=== PATIENT | female | born 1980 | race Caucasian/White ===

== ENCOUNTER → 2020-01-28 | Outpatient (CLI) | payer MEDICARE, OTHER ==
[2020-01-28 15:15] VITALS: BP 131/78; PULSE 101; RESP 18; TEMP 97.9
--- NOTE | 2020-01-28 17:19 | P.HPOB ---
History of Present Illness H&P Date: 01/28/20 Chief Complaint: The pt is here for her routine gynecologic exam to continue Depo-Provera This is a 39-year-old with an LMP of approximately November 2018. The patient is here to establish with this office. She states she was started on Depo-Provera about 1-2 years ago because of heavy and painful menstrual periods as well as PMDD which was so severe that she had been suicidal. She states after starting the Depo-Provera, she has been amenorrheic and has no longer had the PMDD or menstrual pains. Her last Depo-Provera shot was approximately 3-4 months ago and this was done elsewhere. Her primary care physician, Dr. Butts, has referred her here to continue the Depo-Provera. The patient states she is due for her yearly exam. Her is status post vasectomy. She states that she and her are contemplating a vasectomy reversal to attempt . She is not sure when this will be and would like to continue on with Depo- Provera, understanding that this is actively preventing and can do this for more than one year after her last Depo-Provera injection. She is also requesting STD testing. She states this is because she and her were apart a few years ago and are now back together. Review of Systems She states her weight has fluctuated between 170 pounds and 190 pounds during the past year. Respiratory: She has had a chronic cough for many years and has undergone a workup for this in the past. She denies cardiac or GI problems. Past Medical History Past Medical History: No Reported History, Asthma, Osteoarthritis (OA) Additional Past Medical History / Comment(s): Degenerative disc disease, chronic fatigue syndrome, spinal stenosis, fibromyalgia, ADD, chronic neck and back problems, vitamin D deficiency, chronic pain syndrome, seasonal ALLERGIES. 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 She denies any STDs since then. She has a history of PMDD, dysmenorrhea and hypermenorrhea improved with Depo-Provera. History of Any Multi-Drug Resistant Organisms: None Reported Past Surgical History: Adenoidectomy Additional Past Surgical History / Comment(s): Ear tubes placed. VTP as a teenager. Past Psychological History: ADD/ADHD, Anxiety, Depression, Panic Disorder Additional Psychological History / Comment(s): Claustrophobia, PMDD. Smoking Status: Current every day smoker (1/2-1 pack of cigars per day) Past Alcohol Use History: Rare (4 per year) Past Drug Use History: Marijuana Additional Drug Use History / Comment(s): Marijuana use in high school only. Additional History: She was and remarried her . She has been since 2002. She is considered disabled. - Past Family History Father Family Medical History: Myocardial Infarction ([place]) Mother Family Medical History: Cancer Additional Family Medical History / Comment(s): Depression and bladder cancer. Maternal grandfather had bladder cancer as well. Maternal grandmother had breast cancer. Medications and Allergies Home Medications Medication Instructions Recorded Confirmed Type Albuterol Inhaler [Ventolin Hfa 1 - 2 puff INHALATION RT-Q6H PRN 01/28/20 01/28/20 History Inhaler] Buprenorphine HCl/Naloxone HCl 1 each SL DAILY 01/28/20 01/28/20 History [Suboxone 8 mg-2 mg Sl Film] Celecoxib [CeleBREX] 200 mg PO DAILY 01/28/20 01/28/20 History Citalopram Hydrobromide [CeleXA] 20 mg PO DAILY 01/28/20 01/28/20 History Dextroamphetamine/Amphetamine 30 mg PO QAM 01/28/20 01/28/20 History [Adderall Xr] Diclofenac Sodium [Voltaren Gel] 2 gram TOPICAL DAILY 01/28/20 01/28/20 History Fluticasone Nasal [place] [Flonase 2 spr EA NOSTRIL DAILY 01/28/20 01/28/20 History Nasal [place]] Montelukast [Singulair] 10 mg PO DAILY 01/28/20 01/28/20 History Omeprazole [PriLOSEC] 20 mg PO AC-BRKFST 01/28/20 01/28/20 History Ondansetron [Zofran] 4 mg PO Q12HR PRN 01/28/20 01/28/20 History QUEtiapine FUMARATE [SEROquel] 400 mg PO DAILY 01/28/20 01/28/20 History clonazePAM [KlonoPIN] 1 mg PO BID 01/28/20 01/28/20 History tiZANidine HCL 4 mg PO DAILY 01/28/20 01/28/20 History Allergies Allergy/AdvReac Type Severity Reaction Status Date / Time amoxicillin [From Augmentin] AdvReac Nausea Unverified 01/28/20 15:17 aspirin AdvReac Nausea Unverified 01/28/20 15:17 atomoxetine [From Strattera] AdvReac Nausea & Unverified 01/28/20 15:17 Vomiting & Diarrhea clavulanic acid AdvReac Nausea Unverified 01/28/20 15:17 [From Augmentin] divalproex sodium AdvReac Nausea & Unverified 01/28/20 15:17 [From Depakote] Vomiting Exam Vital Signs Temp Pulse Resp BP Pulse Ox 01/28/20 15:09 97.9 F 101 H 18 131/78 100 Intake and Output 01/28/20 01/28/20 01/28/20 06:59 14:59 22:59 Other: Weight 79.379 kg Height 5 feet 5 inches, weight 175 pounds, BMI 29.1. This is a well-developed well-nourished white female who is alert and oriented times 3 in no acute distress. She is somewhat slow with her responses but does seem to answer appropriately. HEENT: Within normal limits. NECK: Supple without mass or thyromegaly. CHEST AND LUNGS: Clear to auscultation. HEART: Regular rate and rhythm. BREASTS: Are without mass or discharge. AXILLARY EXAM: Negative for adenopathy. BACK: Negative for CVA tenderness. ABDOMEN: Soft, nontender, without palpable masses. PELVIC EXAM: Normal external genitalia. Cervix and vagina appear normal. There is no unusual discharge. There is no evidence of prolapse. The uterus is retroverted, nongravid size and nontender. There are no palpable adnexal masses or tenderness. RECTAL EXAM: Refused by the patient. EXTREMITIES: Nontender. IMPRESSION: 1. 39-year-old female with history of dysmenorrhea, hypermenorrhea and PMDD improved with Depo-Provera injections. 2. Amenorrhea for 1-2 years on Depo-Provera. 3. Multiple medical problems. 4. The patient is requesting STD screening. 5. The patient is contemplating vasectomy reversal for her and possibly attempting in the future. PLAN: 1. Pap smear was performed. 2. Self breast awareness was discussed with the patient. 3. GC and Chlamydia testing was obtained from the cervix. Blood tests for STD screening will include HIV, RPR, hepatitis B surface antigen, and hepatitis C an tibody. STD prevention was discussed. 4. Urine hCG will be obtained today. 5. We had a long discussion regarding her heavy and painful periods as well as her history of PMDD. We have also discussed risks of Depo-Provera injections including weakening of bones over time. We discussed other options including progestin only control pills, Nexplanon implant, oophorectomy and hysterectomy. She is not interested in surgical treatment since she has not ruled out the possibility of attempting in the future. She does not like any of the other options and would like to continue on with Depo-Provera since she states she has done well with this. 6. We have discussed her possible desire to attempt in the future. She understands that increasing age can increase the risk for chromosomal abnormalities such as Down syndrome. She also understands that her chances of getting will continue to decline as she gets older. She also understands that Depo-Provera is a long acting control method and she may not be of get for more than one year after discontinuing the Depo- Provera. After this long discussion, she would like to continue with Depo-Pr overa injections at this time. 7. She also understands that with her multiple medical problems and multiple medications, she would be at high risk for . I have recommended that she discuss preconception planning and her medications with a high school music teacher doctor. 8.Osteoporosis prevention was discussed. I have stressed the importance of adequate calcium, vitamin D and regular exercise. Recommended amounts of calcium and vitamin D were also discussed. She understands that this is extremely important because of Depo-Provera and its weakening of bones side effect. I have recommended that she try to get off of this as soon as possible, especially if she is wanting to attempt in the future. 9. The electronic prescription for Depo-Provera will be sent to ER pharmacy in [place]. If the test is negative, she will come in tomorrow for the Depo-Provera injection. This will be repeated every 3 months. 10. She was advised to return in one year for her annual well woman exam.
[2020-01-29 01:18] LABS: Hepatitis B Surface Antigen Non-Reactive (Non-Reactive); Hepatitis C IgG Antibody Non-Reactive (Non-Reactive)
[2020-01-29 07:52] LABS: HIV 1 AB Non-Reactive (Non-Reactive); HIV 2 AB Non-Reactive (Non-Reactive); HIV AB P24 Non-Reactive (Non-Reactive); HIV P24 AG Non-Reactive (Non-Reactive)
[2020-01-29 14:54] LABS: C. trachomatis,PCR Negative (Neg,Equiv); Chlamydia trachomatis Source Cervix; N. gonorrhoeae,PCR Negative (Neg,Equiv); Neisseria Source Cervix
== END | disposition home or self-care (01) ==
LOC: WWCWWP 12-31 14:43
PROVIDERS: ATTEND Obstetrics & Gynecology
DX: Z11.3 Encounter for screening for infections with a predominantly sexual mode of transmission (principal)
CPT/HCPCS: 81025; 86780; 86803; 87340; 87390; 87491; 87591

== ENCOUNTER → 2021-04-06 | Outpatient (CLI) | payer MEDICARE, OTHER ==
[2021-04-06 16:37] VITALS: BP 111/74; PULSE 104; RESP 18; TEMP 98.5
--- NOTE | 2021-04-06 17:32 | P.HPOB ---
History of Present Illness H&P Date: 04/06/21 Chief Complaint: The patient is here for her routine gynecologic exam. This is a 40-year-old with an LMP of 03/08/2021. At her last annual exam, she was on Depo-Provera which she used because of heavy and painful menstrual periods and PMDD. She decided to stop using Depo-Provera last year and her menstrual periods are now regular every month lasting 5 days and are fairly normal. She states one of the reasons she stopped Depo-Provera is because of weight gain on Depo-Provera and she is contemplating attempting . Her is status post vasectomy and the would consider using donor sperm. She gained about 50 pounds while on Depo-Provera and is d iscontinuing it, she lost about 50 pounds. She is without gynecologic complaints. Review of Systems The patient has lost 50 pounds over the last year. See the HPI regarding the weight loss. She denies respiratory, cardiac, or G.I. problems. Past Medical History Past Medical History: No Reported History, Asthma, Osteoarthritis (OA) Additional Past Medical History / Comment(s): Degenerative disc disease, chronic fatigue syndrome, spinal stenosis, fibromyalgia, ADD, chronic neck and back problems, vitamin D deficiency, chronic pain syndrome, seasonal ALLERGIES. 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 She denies any STDs since then. She has a history of PMDD, dysmenorrhea and hypermenorrhea improved with Depo-Provera. History of Any Multi-Drug Resistant Organisms: None Reported Past Surgical History: Adenoidectomy Additional Past Surgical History / Comment(s): Ear tubes placed. VTP as a teenager. Past Psychological History: ADD/ADHD, Anxiety, Depression, Panic Disorder Additional Psychological History / Comment(s): Claustrophobia, PMDD. Smoking Status: Current every day smoker (1 pack per day) Past Alcohol Use History: Rare (3 per year) Past Drug Use History: Marijuana Additional Drug Use History / Comment(s): Marijuana use in high school only. Additional History: She has been since 2002. She states she has not been as was indicated in the 01/28/2020 H&P. She is considered disabled. - Past Family History Father Family Medical History: Myocardial Infarction ([place]) Mother Family Medical History: Cancer Additional Family Medical History / Comment(s): Depression and bladder cancer. Maternal grandfather had bladder cancer as well. Maternal grandmother had breast cancer. Medications and Allergies Home Medications Medication Instructions Recorded Confirmed Type Albuterol Inhaler (Mhu) [Ventolin 1 - 2 puff INHALATION RT-Q6H PRN 01/28/20 01/28/20 History Hfa Inhaler] Buprenorphine HCl/Naloxone HCl 1 each SL DAILY 01/28/20 01/28/20 History [Suboxone 8 mg-2 mg Sl Film] Celecoxib [CeleBREX] 200 mg PO DAILY 01/28/20 01/28/20 History Citalopram Hydrobromide [CeleXA] 20 mg PO DAILY 01/28/20 01/28/20 History Dextroamphetamine/Amphetamine 30 mg PO QAM 01/28/20 01/28/20 History [Adderall Xr] Diclofenac Sodium [Voltaren Gel] 2 gram TOPICAL DAILY 01/28/20 01/28/20 History Fluticasone Nasal [place] [Flonase 2 spr EA NOSTRIL DAILY 01/28/20 01/28/20 History Nasal [place]] Montelukast [Singulair] 10 mg PO DAILY 01/28/20 01/28/20 History Omeprazole [PriLOSEC] 20 mg PO AC-BRKFST 01/28/20 01/28/20 History Ondansetron [Zofran] 4 mg PO Q12HR PRN 01/28/20 01/28/20 History QUEtiapine FUMARATE [SEROquel] 400 mg PO DAILY 01/28/20 01/28/20 History clonazePAM [KlonoPIN] 1 mg PO BID 01/28/20 01/28/20 History Allergies Allergy/AdvReac Type Severity Reaction Status Date / Time amoxicillin [From Augmentin] AdvReac Nausea Unverified 04/06/21 16:30 aspirin AdvReac Nausea Unverified 04/06/21 16:30 atomoxetine [From Strattera] AdvReac Nausea & Unverified 04/06/21 16:30 Vomiting & Diarrhea clavulanic acid AdvReac Nausea Unverified 04/06/21 16:30 [From Augmentin] divalproex sodium AdvReac Nausea & Unverified 04/06/21 16:30 [From Depakote] Vomiting Exam Vital Signs Temp Pulse Resp BP Pulse Ox 04/06/21 16:32 98.5 F 104 H 18 111/74 98 Intake and Output 04/06/21 04/06/21 04/06/21 06:59 14:59 22:59 Other: Weight 58.06 kg Height 5 feet 5 inches, weight 128 pounds, BMI 21.3. This is a well-developed well-nourished white female who is alert and oriented times 3 in no acute distress. HEENT: The patient has a head tremor when she lays down to the patient states she has had this for many years. HEENT is otherwise unremarkable. NECK: Supple without mass or thyromegaly. CHEST AND LUNGS: Clear to auscultation. HEART: Regular rate and rhythm. BREASTS: Are without mass or discharge. AXILLARY EXAM: Negative for adenopathy. BACK: Negative for CVA tenderness. ABDOMEN: Soft, nontender, without palpable masses. PELVIC EXAM: Normal external genitalia. Cervix and vagina appear normal. The cervix is very anterior consistent with her retroverted uterus. There is no unusual discharge. There is no evidence of prolapse. The uterus is retroverted, nongravid size and nontender. There are no palpable adnexal masses or tenderness. RECTAL EXAM: negative for mass or tenderness and is negative for occult blood. EXTREMITIES: Nontender. IMPRESSION: 1. 40-year-old female whose is status post vasectomy with normal gynecologic exam. 2. The patient is contemplating attempting with donor sperm. 3. Because of her age and multiple medications and multiple medical problems, I consider her high risk for . PLAN: 1. Pap smear was deferred since she had a normal one on 01/28/2020. 2. She has an order slip from her PCP for a screening mammogram which has not yet been scheduled. She plans on doing this in the near future. 3. We have had a long discussion regarding attempting . She understands that she is at an increased risk for chromosomal defects such as Down syndrome. She also understands that medications can have possible effects on the including increasing the risk for defects. She is on multiple medications. I have recommended that she speak with her PCP regarding the possibility of weaning off some of the medications, if possible, before attempting . I have recommended that she not wean off of medications on her own but with the supervision of her PCP. I have recommended having an appointment with a maternal medicine doctor for preconception counseling before attempting . She will let me know if she wants to pursue this. I have recommended that she take a daily multivitamin and she states she is already doing this in the form of a vitamin. 4. She understands that I do not deliver babies, but she would need to establish with different hatchery man if she did become . 5. She was advised to return in one year for her annual well woman exam and as needed.
== END ==
LOC: WWCWWP 16:24
PROVIDERS: ATTEND Obstetrics & Gynecology
DX: Z01.419 Encounter for gynecological examination (general) (routine) without abnormal findings (principal); J45.909 Unspecified asthma, uncomplicated; M19.90 Unspecified osteoarthritis, unspecified site; F32.9 Major depressive disorder, single episode, unspecified; F90.9 Attention-deficit hyperactivity disorder, unspecified type; F17.210 Nicotine dependence, cigarettes, uncomplicated; F41.0 Panic disorder [episodic paroxysmal anxiety]; Z79.1 Long term (current) use of non-steroidal anti-inflammatories (NSAID); Z88.0 Allergy status to penicillin; Z88.1 Allergy status to other antibiotic agents; Z88.6 Allergy status to analgesic agent

== ENCOUNTER 2023-07-11 21:34 | Inpatient (IN) | payer MEDICARE, OTHER ==
--- NOTE | 2023-07-11 23:46 | US ---
EXAM: US Duplex Left Lower Extremity Veins CLINICAL HISTORY: Pain, swelling, possible DVT TECHNIQUE: Real-time duplex ultrasound scan of the left lower extremity veins integrating B-mode two-dimensional vascular structure, Doppler spectral analysis, color flow Doppler imaging and compression. COMPARISON: No relevant prior studies available. FINDINGS: Deep veins: The left common femoral vein is partially compressible with internal color flow. However, the proximal profunda femoral in the femoral veins are noncompressible. There is minimal flow in the proximal profunda and proximal superficial femoral veins with the mid and distal femoral veins occluded. The popliteal vein is noncompressible and demonstrates no internal color flow. The interrogated proximal calf veins are occluded. The right common femoral vein was interrogated and is patent. Superficial veins: No definite thrombus in the saphenofemoral junction. Soft tissues: No acute findings. No popliteal cyst. IMPRESSION: The left common femoral vein is partially compressible with internal color flow. However, the proximal profunda femoral in the femoral veins are noncompressible. There is minimal flow in the proximal profunda and proximal superficial femoral veins with the mid and distal femoral veins occluded. The popliteal vein is noncompressible and demonstrates no internal color flow. The interrogated proximal calf veins are occluded. Findings are consistent with extensive deep vein thrombosis of the left lower extremity.
[2023-07-12] MEDS ORDERED: HEPARIN SODIUM 1,000 UN/ML (10ML VL) IV ONE (00:03)
[2023-07-12] MEDS ORDERED: IBUPROFEN 600 MG TAB PO STA (00:03)
[2023-07-12] MEDS ORDERED: HEPARIN SODIUM 1,000 UN/ML (10ML VL) IV PRN (00:03)
[2023-07-12] MEDS ORDERED: SODIUM CHLORIDE 0.9% 500 ML 500 ML IV STA (00:04)
[2023-07-12] MEDS ORDERED: HYDROcodone/APAP 7.5-325MG 1 EACH TAB PO ONE (00:04)
[2023-07-12] MEDS ORDERED: HEPARIN SOD,PORK IN 0.45% NACL 25,000 UNIT in 0.45% NACL 1 250ML.BAG IV SCH (00:15)
--- NOTE | 2023-07-12 00:42 | ED ---
General Adult HPI - General Chief complaint: Psychiatric Symptoms Stated complaint: Mental Health Time Seen by Provider: 07/11/23 21:44 Source: patient, EMS Mode of arrival: EMS Limitations: no limitations - History of Present Illness Initial comments: This patient is a 42-year-old woman who presents with a number of complaints. She states that the main one is that she is feeling worsening of her depression and is having persistent suicidal ideation. She states she does have history of mood disorder and is taking medications but they don't seem to be helping. In addition to the mood issue the patient is having left leg pain and swelling. She states this is been going on for number weeks now, getting progressively worse. She indicates pain to the calf area coming up to the distal thigh. She has had increasing swelling over number weeks. No history of DVT or PE. No recent travel. Patient has had some cough but no hemoptysis. Denies dyspnea -: days(s) Location: chest, left, lower extremity Radiation: non-radiation Quality: dull Consistency: constant Improves with: none Worsens with: none Associated Symptoms: cough Treatments Prior to Arrival: none - Related Data Home Medications Medication Instructions Recorded Confirmed Albuterol Inhaler [Ventolin Hfa 1 - 2 puff INHALATION RT-Q6H PRN 01/28/20 04/06/21 Inhaler] Buprenorphine HCl/Naloxone HCl 1 each SL DAILY 01/28/20 04/06/21 [Suboxone 8 mg-2 mg Sl Film] Celecoxib [CeleBREX] 200 mg PO DAILY 01/28/20 04/06/21 Citalopram Hydrobromide [CeleXA] 20 mg PO DAILY 01/28/20 04/06/21 Dextroamphetamine/Amphetamine 30 mg PO QAM 01/28/20 04/06/21 [Adderall Xr] Diclofenac Sodium [Voltaren Gel] 2 gram TOPICAL DAILY 01/28/20 04/06/21 Fluticasone Nasal [place] [Flonase 2 spr EA NOSTRIL DAILY 01/28/20 04/06/21 Nasal [place]] Montelukast [Singulair] 10 mg PO DAILY 01/28/20 04/06/21 Omeprazole [PriLOSEC] 20 mg PO AC-BRKFST 01/28/20 04/06/21 Ondansetron [Zofran] 4 mg PO Q12HR PRN 01/28/20 04/06/21 QUEtiapine FUMARATE [SEROquel] 400 mg PO DAILY 01/28/20 04/06/21 clonazePAM [KlonoPIN] 1 mg PO BID 01/28/20 04/06/21 Allergies Allergy/AdvReac Type Severity Reaction Status Date / Time amoxicillin [From Augmentin] AdvReac Nausea Verified 07/11/23 21:39 aspirin AdvReac Nausea Verified 07/11/23 21:39 atomoxetine [From Strattera] AdvReac Nausea & Verified 07/11/23 21:39 Vomiting & Diarrhea clavulanic acid AdvReac Nausea Verified 07/11/23 21:39 [From Augmentin] divalproex sodium AdvReac Nausea & Verified 07/11/23 21:39 [From Depakote] Vomiting Review of Systems ROS Statement: Those systems with pertinent positive or pertinent negative responses have been documented in the HPI. ROS Other: All systems not noted in ROS Statement are negative. Constitutional: Denies: fever, chills Respiratory: Reports: cough. Denies: dyspnea, wheezes Cardiovascular: Reports: edema. Denies: orthopnea, syncope Gastrointestinal: Denies: abdominal pain, nausea, vomiting, diarrhea Genitourinary: Denies: dysuria, hematuria Musculoskeletal: Reports: myalgia. Denies: back pain Skin: Denies: rash Neurological: Denies: headache, weakness, numbness Hematological/Lymphatic: Denies: easy bleeding Past Medical History Past Medical History: No Reported History, Asthma, Osteoarthritis (OA) Additional Past Medical History / Comment(s): Degenerative disc disease, chronic fatigue syndrome, spinal stenosis, fibromyalgia, ADD, chronic neck and back problems, vitamin D deficiency, chronic pain syndrome, seasonal ALLERGIES. Past [place] history: She had HPV genital warts shortly after high school. She denies any STDs since then. She has a history of PMDD, dysmenorrhea and hypermenorrhea improved with Depo-Provera. History of Any Multi-Drug Resistant Organisms: None Reported Past Surgical History: Adenoidectomy Additional Past Surgical History / Comment(s): Ear tubes placed. VTP as a teenager. Past Psychological History: ADD/ADHD, Anxiety, Depression, Panic Disorder Smoking Status: Current every day smoker Past Alcohol Use History: Abuse, Daily Past Drug Use History: Marijuana - Past Family History Father Family Medical History: Myocardial Infarction ([place]) Mother Family Medical History: Cancer Additional Family Medical History / Comment(s): Depression and bladder cancer. Maternal grandfather had bladder cancer as well. Maternal grandmother had breast cancer. General Exam Limitations: no limitations General appearance: alert, in no apparent distress Head exam: Present: atraumatic, normocephalic Eye exam: Present: normal appearance. Absent: scleral icterus, conjunctival injection Neck exam: Present: normal inspection, full ROM Respiratory exam: Present: rales (Right base). Absent: respiratory distress, wheezes, rhonchi, stridor Cardiovascular Exam: Present: normal rhythm, tachycardia, normal heart sounds. Absent: systolic murmur, diastolic murmur, rubs, gallop GI/Abdominal exam: Present: soft. Absent: distended, tenderness, guarding, rebound, rigid, mass Extremities exam: Present: normal inspection, tenderness, normal capillary refill, pedal edema (Moderate edema throughout the left lower leg and extending to the knee). Absent: calf tenderness Back exam: Present: normal inspection Neurological exam: Present: alert Skin exam: Present: warm, dry, intact, cyanosis (Left leg). Absent: rash Course Vital Signs 07/11/23 07/12/23 21:36 01:08 Temperature 98.2 F Pulse Rate 113 H 99 Respiratory 18 18 Rate Blood Pressure 133/75 144/95 O2 Sat by Pulse 96 98 Oximetry EKG Findings - EKG Results: EKG: interpreted by ERMD, sinus rhythm, normal axis, normal ST/T EKG shows: tachycardia (Rate 103 bpm) - Blocks, [place], Hypertrophy, ST Abn: QRS axis and voltage: low voltage (<0.5 MV total QRS and <1.0 MV in each precordial lead) Medical Decision Making - Lab Data Result diagrams: 07/12/23 00:25 07/12/23 00:25 Lab Results 07/11/23 07/12/23 07/12/23 Range/Units 22:41 00:25 00:25 WBC 7.0 (3.8-10.6) k/uL RBC 3.77 L (3.80-5.40) m/uL Hgb 12.2 (11.4-16.0) gm/dL Hct 37.2 (34.0-46.0) % MCV 98.6 (80.0-100.0) fL MCH 32.5 (25.0-35.0) pg MCHC 32.9 (31.0-37.0) g/dL RDW 15.5 (11.5-15.5) % Plt Count 236 (150-450) k/uL MPV 7.3 Neutrophils % 60 % Lymphocytes % 26 % Monocytes % 6 % Eosinophils % 6 % Basophils % 1 % Neutrophils # 4.2 (1.3-7.7) k/uL Lymphocytes # 1.8 (1.0-4.8) k/uL Monocytes # 0.4 (0-1.0) k/uL Eosinophils # 0.4 (0-0.7) k/uL Basophils # 0.1 (0-0.2) k/uL Macrocytosis Slight PT (9.0-12.0) sec INR (<1.2) APTT (22.0-30.0) sec Sodium 142 (137-145) mmol/L Potassium 4.0 (3.5-5.1) mmol/L Chloride 105 (98-107) mmol/L Carbon Dioxide 25 (22-30) mmol/L Anion Gap 12 mmol/L BUN 8 (7-17) mg/dL Creatinine 0.69 (0.52-1.04) mg/dL Est GFR (CKD-EPI)AfAm >90 (>60 ml/min/1.73 sqM) Est GFR (CKD-EPI)NonAf >90 (>60 ml/min/1.73 sqM) Glucose 85 (74-99) mg/dL Calcium 8.7 (8.4-10.2) mg/dL Total Bilirubin 0.3 (0.2-1.3) mg/dL AST 29 (14-36) U/L ALT 20 (4-34) U/L Alkaline Phosphatase 119 (38-126) U/L Total Protein 7.7 (6.3-8.2) g/dL Albumin 4.0 (3.5-5.0) g/dL Coronavirus (PCR) Not Detected (Not Detectd) 07/12/23 Range/Units 00:25 WBC (3.8-10.6) k/uL RBC (3.80-5.40) m/uL Hgb (11.4-16.0) gm/dL Hct (34.0-46.0) % MCV (80.0-100.0) fL MCH (25.0-35.0) pg MCHC (31.0-37.0) g/dL RDW (11.5-15.5) % Plt Count (150-450) k/uL MPV Neutrophils % % Lymphocytes % % Monocytes % % Eosinophils % % Basophils % % Neutrophils # (1.3-7.7) k/uL Lymphocytes # (1.0-4.8) k/uL Monocytes # (0-1.0) k/uL Eosinophils # (0-0.7) k/uL Basophils # (0-0.2) k/uL Macrocytosis PT 10.2 (9.0-12.0) sec INR 1.0 (<1.2) APTT 22.7 (22.0-30.0) sec Sodium (137-145) mmol/L Potassium (3.5-5.1) mmol/L Chloride (98-107) mmol/L Carbon Dioxide (22-30) mmol/L Anion Gap mmol/L BUN (7-17) mg/dL Creatinine (0.52-1.04) mg/dL Est GFR (CKD-EPI)AfAm (>60 ml/min/1.73 sqM) Est GFR (CKD-EPI)NonAf (>60 ml/min/1.73 sqM) Glucose (74-99) mg/dL Calcium (8.4-10.2) mg/dL Total Bilirubin (0.2-1.3) mg/dL AST (14-36) U/L ALT (4-34) U/L Alkaline Phosphatase (38-126) U/L Total Protein (6.3-8.2) g/dL Albumin (3.5-5.0) g/dL Coronavirus (PCR) (Not Detectd) Disposition Clinical Impression: DVT (deep venous thrombosis), Pulmonary embolism, Suicidal ideation Disposition: ADMITTED IP TO THIS HOSP Condition: Fair Is patient prescribed a controlled substance at d/c from ED?: No Referrals: None,Stated [Primary Care Provider] - 1-2 days
[2023-07-12 00:43] LABS: Basophils # (A) 0.1 k/uL (0-0.2); Basophils % (A) 1 %; Eosinophils # (A) 0.4 k/uL (0-0.7); Eosinophils % (A) 6 %; HCT 37.2 % (34.0-46.0); HGB 12.2 gm/dL (11.4-16.0); Lymphocytes # (A) 1.8 k/uL (1.0-4.8); Lymphocytes % (A) 26 %; MCH 32.5 pg (25.0-35.0); MCHC 32.9 g/dL (31.0-37.0); MCV 98.6 fL (80.0-100.0); Macrocytosis Slight; Mean Platelet Volume 7.3; Monocytes # (A) 0.4 k/uL (0-1.0); Monocytes % (A) 6 %; Neutrophils # (A) 4.2 k/uL (1.3-7.7); Neutrophils % (A) 60 %; Platelet Count 236 k/uL (150-450); RBC 3.77 m/uL (3.80-5.40); RDW 15.5 % (11.5-15.5)
[2023-07-12] MEDS ORDERED: ACETAMINOPHEN TAB 325 MG TAB PO PRN (00:43)
[2023-07-12] MEDS ORDERED: NALOXONE 0.4 MG/ML 1 ML VIAL IV PRN (00:43)
[2023-07-12 00:55] LABS: Partial Thromboplastin Time 22.7 sec (22.0-30.0); Prothrombin Time 10.2 sec (9.0-12.0)
[2023-07-12 00:59] LABS: ALT 20 U/L (4-34); AST 29 U/L (14-36); African American GFR (CKD) >90 (>60 ml/min/1.73 sqM); Alkaline Phosphatase 119 U/L (38-126); Anion Gap 12 mmol/L; Blood Urea Nitrogen 8 mg/dL (7-17); Calcium 8.7 mg/dL (8.4-10.2); Carbon Dioxide 25 mmol/L (22-30); Chloride 105 mmol/L (98-107); Glucose 85 mg/dL (74-99); Non-African American GFR(CKD) >90 (>60 ml/min/1.73 sqM); Sodium 142 mmol/L (137-145); Total Bilirubin 0.3 mg/dL (0.2-1.3); Total Protein 7.7 g/dL (6.3-8.2)
[2023-07-12] MEDS: SODIUM CHLORIDE 0.9% 1,000 ML IV SCH ×2 (01:30→20:23)
--- NOTE | 2023-07-12 01:34 | CT ---
EXAM: CT Angiography Chest With Intravenous Contrast CLINICAL HISTORY: Evaluate for PE TECHNIQUE: Axial computed tomographic angiography images of the chest with intravenous contrast. CTDI is 8.9 mGy and DLP is 367.7 mGy-cm. This CT exam was performed using one or more of the following dose reduction techniques: automated exposure control, adjustment of the mA and/or kV according to patient size, and/or use of iterative reconstruction technique. MIP reconstructed images were created and reviewed. COMPARISON: No relevant prior studies available. FINDINGS: Pulmonary arteries: Partially occlusive pulmonary embolism noted in the distal right pulmonary artery with extension to the proximal right upper lobe segmental branch, proximal subsegmental branches serving the right middle lobe and the right lower lobe. No definite left sided pulmonary emboli identified. Aorta: No acute findings. No thoracic aortic aneurysm. Lungs: Subsegmental wedge-shaped opacities in the peripheral aspect of the right lower lobe and the left anterior basal segment. Pleural space: Trace right pleural effusion noted in the costophrenic margin. No pneumothorax. Heart: The RV/LV ratio is 0.78. The cardiac chambers are normal. Trace pericardial effusion. Bones/joints: No acute fracture. No dislocation. Soft tissues: Unremarkable. Lymph nodes: Unremarkable. No enlarged lymph nodes. IMPRESSION: 1. Partially occlusive pulmonary embolism noted in the distal right pulmonary artery with extension to the proximal right upper lobe segmental branch, proximal subsegmental branches serving the right middle lobe and the right lower lobe. No definite left sided pulmonary emboli identified. Evaluation the distal subsegmental branches is limited by respiratory artifact and presumed under-appreciated. No evidence for right heart strain. 2. Subsegmental wedge-shaped opacities in the peripheral aspect of the right lower lobe and the left anterior basal segment. Trace right pleural effusion the costophrenic margin. <MYCVCSECTION> Communications: 07/12/23 01:35 Call Doctor Regarding Pulmonary Embolism, called Dr. Castro on 07/12 01:35 (-04:00)
[2023-07-12] MEDS ORDERED: MORPHINE SULFATE 4 MG/ML SYRINGE IV STA (03:13)
[2023-07-12] MEDS ORDERED: ONDANSETRON 4 MG/2 ML VIAL IVP STA (03:13)
[2023-07-12] MEDS: ONDANSETRON 4 MG/2 ML VIAL IVP PRN ×2 (07:34→17:22)
[2023-07-12] MEDS: FAMOTIDINE 20 MG TAB PO SCH ×2 (08:27→23:47)
[2023-07-12] MEDS: PANTOPRAZOLE 40 MG/10 ML VIAL IVP SCH (09:15)
[2023-07-12] MEDS ORDERED: MONTELUKAST 10 MG TAB PO PRN (10:04)
[2023-07-12] MEDS ORDERED: clonazePAM 1 MG TAB PO PRN (10:04)
--- NOTE | 2023-07-12 10:08 | P.HPIM ---
History of Present Illness H&P Date: 07/12/23 History of present illness; patient is 42-year-old lady with past medical histor y significant for depression, mood disorders presented to the ER because of feeling depressed and having suicidal thoughts. Patient stated that she has been taking her medications but they have not been working and she has been feeling more depressed. Patient has been having thoughts of hurting herself. There is no complain of auditory or visual hallucinations. Patient also complaining of left leg pain and swelling which has been going on for the last few months, swelling has increased all the way to the upper thigh now. Denies any chest pain. Denies any shortness of breath. No complaint of fever or chills. Initial lab work done in the ER showed WBC 7, hemoglobin 12.2, platelet count 236, sodium 142, potassium 4, BUN 8, creatinine 0.69, AST 29, ALT 20 Ultrasound of lower extremities done showed extensive deep vein thrombosis of left lower extremity CTA chest showed partially occlusive pulmonary embolism noted in the distal right pulmonary artery with extension into the proximal right upper lobe segmental branch, proximal subsegmental branches serving the right middle lobe and right lower lobe,.subsegmental wedge-shaped opacities in the peripheral aspect of the right lower lobe and the left anterior basal segment. Patient admitted to medicine service REVIEW OF SYSTEMS: CONSTITUTIONAL: No fever, no malaise, no fatigue. HEENT: No recent visual problems or hearing problems. Denied any sore throat. CARDIOVASCULAR: No chest pain, orthopnea, PND, no palpitations, no syncope. PULMONARY: No shortness of breath, no cough, no hemoptysis. GASTROINTESTINAL: No diarrhea, no nausea, no vomiting, no abdominal pain. NEUROLOGICAL: No headaches, no weakness, no numbness. HEMATOLOGICAL: Denies any bleeding or petechiae. GENITOURINARY: Denies any burning micturition, frequency, or urgency. MUSCULOSKELETAL/RHEUMATOLOGICAL: Denies any joint pain, swelling, or any muscle pain. ENDOCRINE: Denies any polyuria or polydipsia. The rest of the 14-point review of systems is negative. PHYSICAL EXAMINATION: GENERAL: The patient is alert and oriented x3, not in any acute distress. Well developed, well nourished. HEENT: Pupils are round and equally reacting to light. EOMI. No scleral icterus. No conjunctival pallor. Normocephalic, atraumatic. No pharyngeal erythema. No thyromegaly. CARDIOVASCULAR: S1 and S2 present. No murmurs, rubs, or gallops. PULMONARY: Chest is clear to auscultation, no wheezing or crackles. ABDOMEN: Soft, nontender, nondistended, normoactive bowel sounds. No palpable organomegaly. MUSCULOSKELETAL: No joint swelling or deformity. EXTREMITIES: No cyanosis, clubbing, or pedal edema. NEUROLOGICAL: Gross neurological examination did not reveal any focal deficits. SKIN: No rashes. Assessment and plan Acute left lower extremity DVT Acute right-sided PE Suicidal ideations Worsening depression Monitor vital signs Monitor CBC Monitor CMP Continue telemetry monitoring Continue pharmacy dose heparin Avoid NSAIDs Consult vascular surgery Consults psychiatry Labs and medication were reviewed.. Continue same treatment. Continue with symptomatic treatment. Resume home medication. Monitor labs and vitals. DVT and GI prophylaxis. Further recommendations as per clinical course of the patient Dictation was produced using [employer] dictation software. please excuse any grammatical, word or spelling errors. Past Medical History Past Medical History: No Reported History, Asthma, Osteoarthritis (OA) Additional Past Medical History / Comment(s): Degenerative disc disease, chronic fatigue syndrome, spinal stenosis, fibromyalgia, ADD, chronic neck and back problems, vitamin D deficiency, chronic pain syndrome, seasonal ALLERGIES. 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 She denies any STDs since then. She has a history of PMDD, dysmenorrhea and hypermenorrhea improved with Depo-Provera. History of Any Multi-Drug Resistant Organisms: None Reported Past Surgical History: Adenoidectomy Additional Past Surgical History / Comment(s): Ear tubes placed. VTP as a teenager. Past Psychological History: ADD/ADHD, Anxiety, Depression, Panic Disorder Smoking Status: Current every day smoker Past Alcohol Use History: Abuse, Daily Past Drug Use History: Marijuana - Past Family History Father Family Medical History: Myocardial Infarction ([place]) Mother Family Medical History: Cancer Additional Family Medical History / Comment(s): Depression and bladder cancer. Maternal grandfather had bladder cancer as well. Maternal grandmother had breast cancer. Medications and Allergies Home Medications Medication Instructions Recorded Confirmed Type Montelukast [Singulair] 10 mg PO DAILY PRN 01/28/20 07/12/23 History QUEtiapine FUMARATE [SEROquel] 600 mg PO HS 07/12/23 07/12/23 History clonazePAM [KlonoPIN] 1 mg PO TID PRN 07/12/23 07/12/23 History Allergies Allergy/AdvReac Type Severity Reaction Status Date / Time amoxicillin [From Augmentin] AdvReac Nausea Verified 07/12/23 08:21 aspirin AdvReac Nausea Verified 07/12/23 08:21 atomoxetine [From Strattera] AdvReac Nausea & Verified 07/12/23 08:21 Vomiting & Diarrhea clavulanic acid AdvReac Nausea Verified 07/12/23 08:21 [From Augmentin] divalproex sodium AdvReac Nausea & Verified 07/12/23 08:21 [From Depakote] Vomiting Physical Exam Vitals: Vital Signs Temp Pulse Resp BP Pulse Ox 07/12/23 09:00 81 181 H 155/91 100 07/12/23 07:22 81 18 144/95 96 07/12/23 06:10 77 18 137/76 98 07/12/23 04:30 85 18 121/67 98 07/12/23 03:30 96 18 118/54 98 07/12/23 02:58 92 18 133/78 98 07/12/23 01:08 99 18 144/95 98 07/11/23 21:36 98.2 F 113 H 18 133/75 96 Intake and Output 07/11/23 07/12/23 07/12/23 22:59 06:59 14:59 Other: Weight 58.967 kg Results CBC & Chem 7: 07/12/23 00:25 07/12/23 00:25 Labs: Abnormal Lab Results - Last 24 Hours (Table) 07/12/23 07/12/23 Range/Units 00:25 06:56 RBC 3.77 L (3.80-5.40) m/uL APTT 51.9 H (22.0-30.0) sec
[2023-07-12] MEDS: Apixaban Initiation Dose--VTE 5 MG TAB PO SCH ×2 (10:41→23:46)
--- NOTE | 2023-07-12 11:37 | P.GSCN ---
History of Present Illness Consult date: 07/12/23 Reason for Consult: Left leg DVT Requesting physician: Jamarcus Cook History of present illness: The seventh 42-year-old female with past medical history including alcohol abuse, nicotine dependence, chronic back pain, anxiety, and depression who presented to the emergency department with complaints of worsening depression having suicidal ideation. Patient also complains of left leg pain and swelling that has been going on for a number of weeks. Patient was noted to have elevated d-dimer, she underwent a lower extremity venous duplex of the left lower extremity that reported extensive deep vein thrombosis. Patient also had a CT angiogram of the chest which also reported partial occlusive pulmonary embolism in the distal right pulmonary artery with extension to the proximal right upper lobe segmental branch, proximal subsegmental branches serving the right middle lobe and right lower lobe. No definite left-sided pulmonary emboli. No evidence for right heart strain. Subsegmental wedge-shaped opaciti es in the peripheral aspect of the right lower lobe and the left anterior basal segment. Trace right pleural effusion. Patient was started on a heparin drip. She is also being admitted and evaluated for mood disorder and suicide ideation. She has a sitter at the bedside. Patient currently denies any chest pain, shortness of breath, abdominal pain, nausea or vomiting. She states she just has pain in her back she states which is chronic. Patient states that left lower extremity started swelling a few weeks ago progressively gotten worse. She also states that right lower extremity has been swollen in the past as well. She admits to alcohol abuse daily, she is daily smoker. No previous history of blood clots. No known history of clotting disorder or family history of clotting disorder. As no recent travel or recent injuries. Review of Systems A 14 point review systems was completed all pertinent positives and negatives as stated in the HPI. Past Medical History Past Medical History: No Reported History, Asthma, Osteoarthritis (OA) Additional Past Medical History / Comment(s): Degenerative disc disease, chronic fatigue syndrome, spinal stenosis, fibromyalgia, ADD, chronic neck and back problems, vitamin D deficiency, chronic pain syndrome, seasonal ALLERGIES. 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 She denies any STDs since then. She has a history of PMDD, dysmenorrhea and hypermenorrhea improved with Depo-Provera. History of Any Multi-Drug Resistant Organisms: None Reported Past Surgical History: Adenoidectomy Additional Past Surgical History / Comment(s): Ear tubes placed. VTP as a teenager. Past Psychological History: ADD/ADHD, Anxiety, Depression, Panic Disorder Smoking Status: Current every day smoker Past Alcohol Use History: Abuse, Daily Past Drug Use History: Marijuana - Past Family History Father Family Medical History: Myocardial Infarction ([place]) Mother Family Medical History: Cancer Additional Family Medical History / Comment(s): Depression and bladder cancer. Maternal grandfather had bladder cancer as well. Maternal grandmother had breast cancer. Medications and Allergies Home Medications Medication Instructions Recorded Confirmed Type Montelukast [Singulair] 10 mg PO DAILY PRN 01/28/20 07/12/23 History QUEtiapine FUMARATE [SEROquel] 600 mg PO HS 07/12/23 07/12/23 History clonazePAM [KlonoPIN] 1 mg PO TID PRN 07/12/23 07/12/23 History Allergies Allergy/AdvReac Type Severity Reaction Status Date / Time amoxicillin [From Augmentin] AdvReac Nausea Verified 07/12/23 08:21 aspirin AdvReac Nausea Verified 07/12/23 08:21 atomoxetine [From Strattera] AdvReac Nausea & Verified 07/12/23 08:21 Vomiting & Diarrhea clavulanic acid AdvReac Nausea Verified 07/12/23 08:21 [From Augmentin] divalproex sodium AdvReac Nausea & Verified 07/12/23 08:21 [From Depakote] Vomiting Surgical - Exam Vital Signs Temp Pulse Resp BP Pulse Ox 98.2 F 113 H 18 133/75 96 07/11/23 21:36 07/11/23 21:36 07/11/23 21:36 07/11/23 21:36 07/11/23 21:36 General appearance: The patient is alert, oriented, appears in no acute distres s. HET: Head is normocephalic and atraumatic. Pupils are equal and reactive. Neck: Supple. Heart: Regular. Lungs: Equal expansion, normal respiratory effort. Abdomen: Soft, nontender, nondistended. Extremities: Normal skin color and turgor. Left lower extremity swelling. Palpable femoral and DP pulses. Patient has good range of motion and sensorimotor intact. Neurological: No focal deficits. Strength and sensation are grossly intact. Results - Labs 07/12/23 00:25 07/12/23 00:25 Abnormal Lab Results - Last 24 Hours (Table) 07/12/23 07/12/23 Range/Units 00:25 06:56 RBC 3.77 L (3.80-5.40) m/uL APTT 51.9 H (22.0-30.0) sec Diabetes panel 07/12/23 Range/Units 00:25 Sodium 142 (137-145) mmol/L Potassium 4.0 (3.5-5.1) mmol/L Chloride 105 (98-107) mmol/L Carbon Dioxide 25 (22-30) mmol/L BUN 8 (7-17) mg/dL Creatinine 0.69 (0.52-1.04) mg/dL Glucose 85 (74-99) mg/dL Calcium 8.7 (8.4-10.2) mg/dL AST 29 (14-36) U/L ALT 20 (4-34) U/L Alkaline Phosphatase 119 (38-126) U/L Total Protein 7.7 (6.3-8.2) g/dL Albumin 4.0 (3.5-5.0) g/dL Calcium panel 07/12/23 Range/Units 00:25 Calcium 8.7 (8.4-10.2) mg/dL Albumin 4.0 (3.5-5.0) g/dL Pituitary panel 07/12/23 Range/Units 00:25 Sodium 142 (137-145) mmol/L Potassium 4.0 (3.5-5.1) mmol/L Chloride 105 (98-107) mmol/L Carbon Dioxide 25 (22-30) mmol/L BUN 8 (7-17) mg/dL Creatinine 0.69 (0.52-1.04) mg/dL Glucose 85 (74-99) mg/dL Calcium 8.7 (8.4-10.2) mg/dL Adrenal panel 07/12/23 Range/Units 00:25 Sodium 142 (137-145) mmol/L Potassium 4.0 (3.5-5.1) mmol/L Chloride 105 (98-107) mmol/L Carbon Dioxide 25 (22-30) mmol/L BUN 8 (7-17) mg/dL Creatinine 0.69 (0.52-1.04) mg/dL Glucose 85 (74-99) mg/dL Calcium 8.7 (8.4-10.2) mg/dL Total Bilirubin 0.3 (0.2-1.3) mg/dL AST 29 (14-36) U/L ALT 20 (4-34) U/L Alkaline Phosphatase 119 (38-126) U/L Total Protein 7.7 (6.3-8.2) g/dL Albumin 4.0 (3.5-5.0) g/dL - Imaging Comments: See HPI for details Assessment and Plan Assessment: 1. Left lower extremity DVT 2. Pulmonary embolism without evidence of right heart strain 3. Tobacco dependence, daily smoker 4. Alcohol abuse 5. Depression with suicidal ideation Plan: 1. Continue symptomatic and supportive care 2. Transition heparin to Eliquis 10 mg twice a day, taper dose. Patient should be on at least 6 months 3. Elevate left lower extremity, apply compression stocking 4. No indication for any vascular surgical intervention at this time 5. Patient is stable from a vascular surgical standpoint for mental health admission if warranted 6. Consider outpatient follow-up with hematology for hypercoagulable workup 7. Follow-up with vascular surgery in 1-2 weeks Thank you for this consultation. The impression and plan of care has been dictated as directed. Dr. Us I performed a history and examination of this patient, discussed the same with the dictator. I agree with the dictator's note ,documented as a scribe. Any additional findings or plans will be noted.
--- NOTE | 2023-07-12 13:46 | P.CN ---
Psychiatric Consult - . Consult date: 07/12/23 Consult:: 07/12/23 13:45 IDENTIFYING DATA: This patient is a 42-year-old , on SSDI, female with a significant history of depression and anxiety presents to her hospital on 07/11/2023 for mental health evaluation. HISTORY OF PRESENT ILLNESS: The patient presented to the hospital on 07/11/2023, brought in by EMS after the patient's parents called for wellness check. The patient has been experiencing elevated depression, anxiety, and low mood in the context of her divorce being finalized 1 year ago. The patient reports that she has been increasingly depressed and anxious and feels very lonely. She does endorse significant signs and symptoms depression including crying episodes, poor focus, poor sleep, and anhedonia. She does report a history of suicidal ideation however is vehemently denying any suicidal or homicidal ideation, intention, and/or plan this time. Furthermore, the patient does report that she has had prior attempts at suicide by overdose however states that he has been many years. Her primary concern is feeling lonely. She does not report any significant signs or symptoms of mile or hypomania. She denies any periods of excessive energy, grandiosity, or increased goal-dire cted activity. She does not report any auditory or visual hallucinations patient reports that she has been off her medications for mental health for the past couple of months as she was discharged from her outpatient psychiatrist office due to missing appointments. Of note, the patient did present with left leg pain and swelling. Furthermore, she had been coughing. CTA of her chest showed partially occlusive pulmonary embolism noted in the distal right pulmonary artery. Furthermore, the patient is noted to have extensive deep vein thrombosis of the left lower extremity on venous Doppler study. The patient is admitted medically. PAST PSYCHIATRIC HISTORY: Patient has a history of ADHD, depression, and anxiety. The patient's home medications include Klonopin 1 mg by mouth 3 times a day for anxiety and Seroquel 600 mg at bedtime. She reports a history of inpatient psychiatric hospitalization however states it has been years. She is currently not open with any outpatient psychiatric treatment team. She reports prior attempts at suicide by overdose however states that has been years. PAST MEDICAL HISTORY: Past Medical History: No Reported History, Asthma, Osteoarthritis (OA) Additional Past Medical History / Comment(s): Degenerative disc disease, chronic fatigue syndrome, spinal stenosis, fibromyalgia, ADD, chronic neck and back problems, vitamin D deficiency, chronic pain syndrome, seasonal ALLERGIES. Past [employer] history: She had HPV genital warts shortly after high school. She denies any STDs since then. She has a history of PMDD, dysmenorrhea and hypermenorrhea improved with Depo-Provera. History of Any Multi-Drug Resistant Organisms: None Reported Past Surgical History: Adenoidectomy Additional Past Surgical History / Comment(s): Ear tubes placed. VTP as a teenager. Past Psychological History: ADD/ADHD, Anxiety, Depression, Panic Disorder Smoking Status: Current every day smoker Past Alcohol Use History: Abuse, Daily Past Drug Use History: Marijuana ALLERGIES: Allergies Allergy/AdvReac Type Severity Reaction Status Date / Time amoxicillin [From Augmentin] AdvReac Nausea Verified 07/12/23 08:21 aspirin AdvReac Nausea Verified 07/12/23 08:21 atomoxetine [From Strattera] AdvReac Nausea & Verified 07/12/23 08:21 Vomiting & Diarrhea clavulanic acid AdvReac Nausea Verified 07/12/23 08:21 [From Augmentin] divalproex sodium AdvReac Nausea & Verified 07/12/23 08:21 [From Depakote] Vomiting CHEMICAL DEPENDENCY HISTORY: The patient reports one pack per day of tobacco use. She is unable to quantify the amount she drinks however does report that she "sips throughout the day." She does have a history of going to rehab for alcohol use disorder in the past. She denies any history of seizure or withdrawal. She reports marijuana use but states it is rare. FAMILY PSYCHIATRIC/SUBSTANCE USE HISTORY: She does not report any significant family history at this time SOCIAL HISTORY: Patient was born in [place] and raised in [place]. She is currently . She her Anival twice and twice. S he has a son who is 23 years old previous relationship. She currently receives SSDI for back problems. 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 MENTAL STATUS EXAM: General Appearance: Patient appears to be stated age is alert, pleasant, and cooperative. Patient appears to have fair hygiene and grooming wearing hospital gown with fair eye contact. Behavior: Patient is calmly lying in bed without any agitated behavior. Speech: Patient's speech is fluent and nonpressured. Mood/Affect: Patient reports their mood is "depressed", affect is congruent and tearful Suicidality/Homicidality: Patient vehemently denies any suicidal or homicidal ideation, intention, and/or plan. Perceptions: Patient denies any visual hallucinations and denies any auditory hallucinations Though content/process: There is no evidence of any delusional thought content and thought process is linear and goal-directed. She is expressing desire for outpatient treatment for mental health. Memory and concentration: AOX3, grossly intact for the purposes of this session. Can spell "WORLD" backwards Judgment and insight: Fair IMPRESSIONS: Acute left lower extremity DVT Acute right-sided PE Major depressive disorder, recurrent, moderate Nicotine dependence PLAN: -At this time patient DOES NOT meet criteria for inpatient psychiatric admission. The patient is vehemently denying any suicidal or homicidal ideation, intention, and/or plan. She remains future and goal oriented with a strong desire to live for herself and for her family. She does wish to be restarted on medications and to be open with an outpatient psychiatric provider. Furthermore, the patient has acute medical complications at this time that are exclusionary criteria for a psychiatric unit. -Would recommend the following medication changes/additions: At this time, we are awaiting the patient's acute issues of DVT and PE to be resolved prior to the initiation of medications. Antidepressants have been shown in studies to increase VTE in women. However SSRIs due to increase the risk of bleeding due to serotonergic nature. Agree with Klonopin PRN at this time. -Patient does not require one-to-one sitter -Psychiatry will continue to follow along. 07/12/23 13:45
--- NOTE | 2023-07-12 14:08 | P.CNPUL ---
History of Present Illness Consult date: 07/12/23 Requesting physician: Manoj Veras Reason for consult: pulmonary embolism, abnormal CXR/CT Chief complaint: Depression, left lower extremity pain History of present illness: This is a 42-year-old female patient with no current primary care provider. She does have a history of depression,, chronic fatigue syndrome, chronic neck and back pain,, chronic tobacco dependence, marijuana use, daily alcohol use, ADHD. She presented here to the emergency room yesterday with complaints of depression and persistent suicidal ideations. She was also complaining of left lower extremity pain and swelling over the past month. Chest x-ray revealed a small right pleural effusion and right basilar atelectasis. Doppler of the left lower extremity revealed a left common femoral vein partially compressible with enterococcal. However, the proximal profunda femoral and the femoral veins are noncompressible. There is minimal flow in the proximal profunda and proximal superficial femoral veins with the mid and distal femoral veins occluded. Proximal calf veins are occluded. Findings are consistent with extensive DVT of the left lower extremity. CT angiogram revealed a partially occlusive pulmonary embolism noted in the distal right pulmonary artery with extension to the proximal right upper lobe segmental branch, proximal subsegmental branches serving the right middle lobe and the right lower lobe. No evidence of right heart strain. There is subsegmental wedge-shaped opacities in the peripheral aspect of the right lower lobe and the left anterior basal segment. Trace right pleural effusion. White count 7.0. Hemoglobin 12.2. Platelets 236. Sodium 142. Potassium 4.0. Bicarb 25. BUN 8. Creatinine 0.69. AST 29. ALT 20. Jaimes virus by PCR not detected. She is seen in consultation in the emergency department. She's been initiated on a heparin drip. She is currently jorge a ntaining good O2 saturations in the 90s on room air. She is having ongoing left lower extremity pain. MANUELA hose has been applied. Vascular surgery has been consulted. Psychiatry has been consulted. Review of Systems REVIEW OF SYSTEMS: CONSTITUTIONAL: Denies any recent significant weight loss or weight gain. EYES: Denies change in vision. EARS, NOSE, MOUTH, THROAT: Denies headaches, denies sore throat. CARDIOVASCULAR: Denies chest pain, palpitations or syncopal episodes. RESPIRATORY: Positive for shortness of breath, no cough, congestion or hemoptysis. GASTROINTESTINAL: Denies change in appetite, denies abdominal pain GENITOURINARY: Denies hematuria, denies infections. MUSKULOSKELETAL: Positive for left lower extremity pain and swelling. INTEGUMENTARY: Denies rash, denies eczema. NEUROLOGICAL: Denies recent memory loss, no recent seizure activity. PSYCHIATRIC: Positive for depression. HEMATOLOGIC/LYMPHATIC: Denies anemia, denies enlarged lymph nodes. Past Medical History Past Medical History: No Reported History, Asthma, Osteoarthritis (OA) Additional Past Medical History / Comment(s): Degenerative disc disease, chronic fatigue syndrome, spinal stenosis, fibromyalgia, ADD, chronic neck and back problems, vitamin D deficiency, chronic pain syndrome, seasonal ALLERGIES. Past [employer] history: She had HPV genital warts shortly after high school. She denies any STDs since then. She has a history of PMDD, dysmenorrhea and hypermenorrhea improved with Depo-Provera. History of Any Multi-Drug Resistant Organisms: None Reported Past Surgical History: Adenoidectomy Additional Past Surgical History / Comment(s): Ear tubes placed. VTP as a teenager. Past Psychological History: ADD/ADHD, Anxiety, Depression, Panic Disorder Smoking Status: Current every day smoker Past Alcohol Use History: Abuse, Daily Past Drug Use History: Marijuana - Past Family History Father Family Medical History: Myocardial Infarction (ME) Mother Family Medical History: Cancer Additional Family Medical History / Comment(s): Depression and bladder cancer. Maternal grandfather had bladder cancer as well. Maternal grandmother had breast cancer. Medications and Allergies Home Medications Medication Instructions Recorded Confirmed Type Montelukast [Singulair] 10 mg PO DAILY PRN 01/28/20 07/12/23 History QUEtiapine FUMARATE [SEROquel] 600 mg PO HS 07/12/23 07/12/23 History clonazePAM [KlonoPIN] 1 mg PO TID PRN 07/12/23 07/12/23 History Allergies Allergy/AdvReac Type Severity Reaction Status Date / Time amoxicillin [From Augmentin] AdvReac Nausea Verified 07/12/23 08:21 aspirin AdvReac Nausea Verified 07/12/23 08:21 atomoxetine [From Strattera] AdvReac Nausea & Verified 07/12/23 08:21 Vomiting & Diarrhea clavulanic acid AdvReac Nausea Verified 07/12/23 08:21 [From Augmentin] divalproex sodium AdvReac Nausea & Verified 07/12/23 08:21 [From Depakote] Vomiting Physical Exam Vitals: Vital Signs Temp Pulse Resp BP Pulse Ox 07/12/23 10:43 89 18 145/80 97 07/12/23 09:00 81 181 H 155/91 100 07/12/23 07:22 81 18 144/95 96 07/12/23 06:10 77 18 137/76 98 07/12/23 04:30 85 18 121/67 98 07/12/23 03:30 96 18 118/54 98 07/12/23 02:58 92 18 133/78 98 07/12/23 01:08 99 18 144/95 98 07/11/23 21:36 98.2 F 113 H 18 133/75 96 Intake and Output 07/11/23 07/12/23 07/12/23 22:59 06:59 14:59 Other: Weight 58.967 kg GENERAL EXAM: Alert, 42-year-old female, on room air, fairly comfortable in no apparent distress. HEAD: Normocephalic. EYES: Normal reaction of pupils, equal size. NOSE: Clear with pink turbinates. THROAT: No erythema or exudates. NECK: No masses, no JVD. CHEST: No chest wall deformity. LUNGS: Equal air entry with crackles in the right base. CVS: S1 and S2 normal with no audible murmur, regular rhythm. ABDOMEN: No hepatosplenomegaly, normal bowel sounds, no guarding or rigidity. SPINE: No scoliosis or deformity SKIN: No rashes CENTRAL NERVOUS SYSTEM: No focal deficits, tone is normal in all 4 extremities. EXTREMITIES: There is 1-2+ left lower extremity edema. No clubbing, no cyanosis. Peripheral pulses are intact. Results - Laboratory Findings CBC and BMP: 07/12/23 00:25 07/12/23 00:25 PT/INR, D-dimer PT 10.2 sec (9.0-12.0) 07/12/23 00:25 INR 1.0 (<1.2) 07/12/23 00:25 Abnormal lab findings: Abnormal Labs 07/12/23 07/12/23 00:25 06:56 RBC 3.77 L APTT 51.9 H - Diagnostic Findings Chest x-ray: image reviewed CT scan - chest: image reviewed Assessment and Plan Assessment: Acute and chronic depression with suicidal ideation Left lower extremity pain found to have significant DVT. Doppler of the left lower extremity revealed a left common femoral vein partially compressible with enterococcal. However, the proximal profunda femoral and the femoral veins are noncompressible. There is minimal flow in the proximal profunda and proximal superficial femoral veins with the mid and distal femoral veins occluded. Proximal calf veins are occluded. Findings are consistent with extensive DVT of the left lower extremity. Dyspnea in a patient found to have right lung pulmonary emboli. CT angiogram revealed a partially occlusive pulmonary embolism noted in the distal right pulmonary artery with extension to the proximal right upper lobe segmental branch, proximal subsegmental branches serving the right middle lobe and the r ight lower lobe. No evidence of right heart strain. There is subsegmental wedge-shaped opacities in the peripheral aspect of the right lower lobe and the left anterior basal segment. Trace right pleural effusion. Chronic and ongoing tobacco dependence History of marijuana use History of daily alcohol use History of noncompliance, no primary care provider Plan: The patient was seen and evaluated Chest x-ray, CT angiogram, labs and medications reviewed Continue on a heparin drip To be transitioned to a Xa inhibitor No plans for vascular intervention Psychiatry consult Encouraged regarding the importance of outpatient follow-up and medication compliance We will continue to follow and make further recommendations based on her clinical status I have personally seen and examined the patient, performed the documentation and the assessment and plan as written. Number of minutes spent on the visit: 20.
[2023-07-12] MEDS: MORPHINE SULFATE 4 MG/ML SYRINGE IV PRN (17:22)
[2023-07-13] MEDS: MORPHINE SULFATE 4 MG/ML SYRINGE IV PRN ×4 (02:22→22:42)
[2023-07-13] MEDS: SODIUM CHLORIDE 0.9% 1,000 ML IV SCH ×2 (02:33→16:36)
[2023-07-13 07:58] LABS: Basophils % (A) 1 %; Eosinophils # (A) 0.3 k/uL (0-0.7); Eosinophils % (A) 5 %; HCT 37.2 % (34.0-46.0); Hypochromasia Slight; Lymphocytes # (A) 1.3 k/uL (1.0-4.8); Lymphocytes % (A) 25 %; MCH 32.1 pg (25.0-35.0); MCHC 32.1 g/dL (31.0-37.0); MCV 99.8 fL (80.0-100.0); Macrocytosis Slight; Mean Platelet Volume 7.6; Monocytes # (A) 0.4 k/uL (0-1.0); Monocytes % (A) 7 %; Neutrophils # (A) 3.2 k/uL (1.3-7.7); Neutrophils % (A) 60 %; Platelet Count 242 k/uL (150-450); RBC 3.73 m/uL (3.80-5.40); RDW 15.2 % (11.5-15.5); WBC 5.4 k/uL (3.8-10.6)
[2023-07-13] MEDS: FAMOTIDINE 20 MG TAB PO SCH ×2 (09:01→22:26)
[2023-07-13] MEDS: Apixaban Initiation Dose--VTE 5 MG TAB PO SCH ×2 (09:01→22:25)
[2023-07-13] MEDS: PANTOPRAZOLE 40 MG/10 ML VIAL IVP SCH (09:02)
[2023-07-13] MEDS: ONDANSETRON 4 MG/2 ML VIAL IVP PRN ×2 (11:34→22:41)
--- NOTE | 2023-07-13 12:50 | P.PN ---
Subjective Progress Note Date: 07/13/23 This is a 42-year-old female patient with no current primary care provider. She does have a history of depression,, chronic fatigue syndrome, chronic neck and back pain,, chronic tobacco dependence, marijuana use, daily alcohol use, ADHD. She presented here to the emergency room yesterday with complaints of depression and persistent suicidal ideations. She was also complaining of left lower extremity pain and swelling over the past month. Chest x-ray revealed a small right pleural effusion and right basilar atelectasis. Doppler of the left lower extremity revealed a left common femoral vein partially compressible with enterococcal. However, the proximal profunda femoral and the femoral veins are noncompressible. There is minimal flow in the proximal profunda and proximal superficial femoral veins with the mid and distal femoral veins occluded. Proximal calf veins are occluded. Findings are consistent with extensive DVT of the left lower extremity. CT angiogram revealed a partially occlusive pulmonary embolism noted in the distal right pulmonary artery with extension to the proximal right upper lobe segmental branch, proximal subsegmental branches serving the right middle lobe and the right lower lobe. No evidence of right heart strain. There is subsegmental wedge-shaped opacities in the peripheral aspect of the right lower lobe and the left anterior basal segment. Trace right pleural effusion. White count 7.0. Hemoglobin 12.2. Platelets 236. Sodium 142. Potassium 4.0. Bicarb 25. BUN 8. Creatinine 0.69. AST 29. ALT 20. Jaimes virus by PCR not detected. She is seen in consultation in the emergency department. She's been initiated on a heparin drip. She is currently maintaining good O2 saturations in the 90s on room air. She is having ongoing left lower extremity pain. MANUELA hose has been applied. Vascular surgery has been consulted. Psychiatry has been consulted. The patient is seen today 07/13/2023 in follow-up in the emergency department. She is currently resting on the stretcher. Awake and alert in no acute distress. She is maintaining O2 saturations in the 90s on room air. No IV fluids. She's been transitioned to Eliquis. White count 5.4. Hemoccult 12.0. Platelets 242. Objective - Vital Signs Vital signs: Vital Signs Temp 98.2 F 07/13/23 04:00 Pulse 80 07/13/23 11:19 Resp 18 07/13/23 11:19 BP 162/86 07/13/23 11:19 Pulse Ox 95 07/13/23 11:19 FiO2 - Exam GENERAL EXAM: Alert, 42-year-old female, on room air, comfortable in no apparent distress. HEAD: Normocephalic. EYES: Normal reaction of pupils, equal size. NOSE: Clear with pink turbinates. THROAT: No erythema or exudates. NECK: No masses, no JVD. CHEST: No chest wall deformity. LUNGS: Equal air entry with crackles in the right lung base. CVS: S1 and S2 normal with no audible murmur, regular rhythm. ABDOMEN: No hepatosplenomegaly, normal bowel sounds, no guarding or rigidity. SPINE: No scoliosis or deformity SKIN: No rashes CENTRAL NERVOUS SYSTEM: No focal deficits, tone is normal in all 4 extremities. EXTREMITIES: There is 1-2+ left peripheral edema. No clubbing, no cyanosis. Peripheral pulses are intact. - Labs CBC & Chem 7: 07/13/23 07:24 07/12/23 00:25 Labs: Abnormal Lab Results - Last 24 Hours (Table) 07/13/23 Range/Units 07:24 RBC 3.73 L (3.80-5.40) m/uL Assessment and Plan Assessment: Acute on chronic depression with suicidal ideation Left lower extremity pain found to have significant DVT. Doppler of the left lower extremity revealed a left common femoral vein partially compressible with enterococcal. However, the proximal profunda femoral and the femoral veins are noncompressible. There is minimal flow in the proximal profunda and proximal superficial femoral veins with the mid and distal femoral veins occluded. Proximal calf veins are occluded. Findings are consistent with extensive DVT of the left lower extremity. Dyspnea in a patient found to have right lung pulmonary emboli. CT angiogram revealed a partially occlusive pulmonary embolism noted in the distal right pulmonary artery with extension to the proximal right upper lobe segmental branch, proximal subsegmental branches serving the right middle lobe and the right lower lobe. No evidence of right heart strain. There is subsegmental wedge-shaped opacities in the peripheral aspect of the right lower lobe and the left anterior basal segment. Trace right pleural effusion. Chronic and ongoing tobacco dependence History of marijuana use History of daily alcohol use History of noncompliance, no primary care provider Plan: The patient was seen and evaluated Labs and medications reviewed Transitioned to Eliquis [facility] for discharge from the pulmonary standpoint Follow-up in our office in 1 week Encouraged regarding the importance of outpatient follow-up and medication compliance I have personally seen and examined the patient, performed the documentation and the assessment and plan as written. Number of minutes spent on the visit: 10.
--- NOTE | 2023-07-13 14:20 | P.PN ---
Subjective Progress Note Date: 07/13/23 patient is 42-year-old lady with past medical history significant for depression, mood disorders presented to the ER because of feeling depressed and having suicidal thoughts. Patient stated that she has been taking her medications but they have not been working and she has been feeling more depressed. Patient has been having thoughts of hurting herself. There is no complain of auditory or visual hallucinations. Patient also complaining of left leg pain and swelling which has been going on for the last few months, swelling has increased all the way to the upper thigh now. Denies any chest pain. Denies any shortness of breath. No complaint of fever or chills. Initial lab work done in the ER showed WBC 7, hemoglobin 12.2, platelet count 236, sodium 142, potassium 4, BUN 8, creatinine 0.69, AST 29, ALT 20 Ultrasound of lower extremities done showed extensive deep vein thrombosis of left lower extremity CTA chest showed partially occlusive pulmonary embolism noted in the distal right pulmonary artery with extension into the proximal right upper lobe segmental branch, proximal subsegmental branches serving the right middle lobe and right lower lobe,.subsegmental wedge-shaped opacities in the peripheral aspect of the right lower lobe and the left anterior basal segment. Patient admitted to medicine service 07/13. Patient seen and examined. No acute issues overnight. REVIEW OF SYSTEMS: CONSTITUTIONAL: No fever, no malaise,. CARDIOVASCULAR: No chest pain, no palpitations, no syncope. PULMONARY: No shortness of breath, no cough, GASTROINTESTINAL: No diarrhea, no nausea, no vomiting, no abdominal pain. NEUROLOGICAL: No headaches, no weakness, PHYSICAL EXAMINATION: GENERAL: The patient is alert and oriented x3, not in any acute distress. Well developed, well nourished. HEENT: Pupils are round and equally reacting to light. EOMI. No scleral icterus. No conjunctival pallor. Normocephalic, atraumatic. No pharyngeal erythema. No thyromegaly. CARDIOVASCULAR: S1 and S2 present. No murmurs, rubs, or gallops. PULMONARY: Chest is clear to auscultation, no wheezing or crackles. ABDOMEN: Soft, nontender, nondistended, normoactive bowel sounds. No palpable organomegaly. MUSCULOSKELETAL: No joint swelling or deformity. EXTREMITIES: No cyanosis, clubbing, or pedal edema. NEUROLOGICAL: Gross neurological examination did not reveal any focal deficits. SKIN: No rashes. Assessment and plan Acute left lower extremity DVT Acute right-sided PE Suicidal ideations Worsening depression Monitor vital signs Monitor CBC Monitor CMP Suicide precautions Elopement precautions Heparin switch to oral Eliquis 10 mg twice a day for 7 days followed by 5 mg twice a day Vascular surgery evaluated , no need for any surgical intervention at this time Psychiatry evaluated the patient recommended the following At this time, we are awaiting the patient's acute issues of DVT and PE to be resolved prior to the initiation of medications. Antidepressants have been shown in studies to increase VTE in women. However SSRIs due to increase the risk of bleeding due to serotonergic nature. Agree with Klonopin PRN at this time. Pulmonology following Labs and medication were reviewed.. Continue same treatment. Continue with symptomatic treatment. Resume home medication. Monitor labs and vitals. DVT and GI prophylaxis. Further recommendations as per clinical course of the patient Dictation was produced using [employer] dictation software. please excuse any grammatical, word or spelling errors. Objective - Vital Signs Vital signs: Vital Signs Temp 98.2 F 07/13/23 04:00 Pulse 69 07/13/23 06:00 Resp 18 07/13/23 06:00 BP 141/82 07/13/23 06:00 Pulse Ox 98 07/13/23 06:00 FiO2 - Labs CBC & Chem 7: 07/13/23 07:24 07/12/23 00:25 Labs: Abnormal Lab Results - Last 24 Hours (Table) 07/13/23 Range/Units 07:24 RBC 3.73 L (3.80-5.40) m/uL
[2023-07-13] MEDS ORDERED: MIRTAZAPINE 15 MG TAB PO SCH (21:00)
[2023-07-14] MEDS: MORPHINE SULFATE 4 MG/ML SYRINGE IV PRN (06:08)
[2023-07-14 07:15] VITALS: RESP 16
[2023-07-14] MEDS: PANTOPRAZOLE 40 MG/10 ML VIAL IVP SCH (08:27)
[2023-07-14] MEDS: Apixaban Initiation Dose--VTE 5 MG TAB PO SCH (08:27)
[2023-07-14] MEDS: SODIUM CHLORIDE 0.9% 1,000 ML IV SCH (08:27)
[2023-07-14] MEDS: FAMOTIDINE 20 MG TAB PO SCH (08:27)
[2023-07-14 11:09] LABS: Basophils # (A) 0.04 X 10*3/uL (0.00-0.10); Basophils % (A) 0.5 %; Eosinophils # (A) 0.12 X 10*3/uL (0.04-0.35); Eosinophils % (A) 1.6 %; HCT 37.5 % (37.2-46.3); HGB 12.3 d/dL (12.0-15.0); Lymphocytes % (A) 17.6 %; MCH 31.5 pg (27.0-32.0); MCHC 32.8 d/dL (32.0-37.0); MCV 96.2 FL (80.0-97.0); Mean Platelet Volume 9.1 FL (9.5-12.2); Monocytes # (A) 0.81 X 10*3/uL (0.20-1.00); Monocytes % (A) 10.9 %; NRBC Per 100 WBC 0 X 10*3/uL (0.00-0.01); Neutrophils # (A) 5.12 X 10*3/uL (1.80-7.70); Neutrophils % (A) 69.3 %; Platelet Count 262 X 10*3/uL (140-440); RDW 15.4 % (11.5-14.5)
--- NOTE | 2023-07-14 11:15 | P.PN ---
Subjective Progress Note Date: 07/14/23 This is a 42-year-old female patient with no current primary care provider. She does have a history of depression,, chronic fatigue syndrome, chronic neck and back pain,, chronic tobacco dependence, marijuana use, daily alcohol use, ADHD. She presented here to the emergency room yesterday with complaints of depression and persistent suicidal ideations. She was also complaining of left lower extremity pain and swelling over the past month. Chest x-ray revealed a small right pleural effusion and right basilar atelectasis. Doppler of the left lower extremity revealed a left common femoral vein partially compressible with enterococcal. However, the proximal profunda femoral and the femoral veins are noncompressible. There is minimal flow in the proximal profunda and proximal superficial femoral veins with the mid and distal femoral veins occluded. Proximal calf veins are occluded. Findings are consistent with extensive DVT of the left lower extremity. CT angiogram revealed a partially occlusive pulmonary embolism noted in the distal right pulmonary artery with extension to the proximal right upper lobe segmental branch, proximal subsegmental branches serving the right middle lobe and the right lower lobe. No evidence of right heart strain. There is subsegmental wedge-shaped opacities in the peripheral aspect of the right lower lobe and the left anterior basal segment. Trace right pleural effusion. White count 7.0. Hemoglobin 12.2. Platelets 236. Sodium 142. Potassium 4.0. Bicarb 25. BUN 8. Creatinine 0.69. AST 29. ALT 20. Jaimes virus by PCR not detected. She is seen in consultation in the emergency department. She's been initiated on a heparin drip. She is currently maintaining good O2 saturations in the 90s on room air. She is having ongoing left lower extremity pain. MANUELA hose has been applied. Vascular surgery has been consulted. Psychiatry has been consulted. The patient is seen today 07/13/2023 in follow-up in the emergency department. She is currently resting on the stretcher. Awake and alert in no acute distress. She is maintaining O2 saturations in the 90s on room air. No IV fluids. She's been transitioned to Eliquis. White count 5.4. Hemoccult 12.0. Platelets 242. The patient is seen today 07/14/2023 in follow-up on the regular medical floor. She is currently resting quite comfortably in bed. Awake and alert in no acute distress. Maintaining good O2 saturations in the 90s on room air. No worsening shortness of breath, cough or congestion. No hemoptysis. No chest pain. She is continued on Eliquis. Count 7.4. Hemoglobin 12.3. Platelets 262. Objective - Vital Signs Vital signs: Vital Signs Temp 97.9 F 07/14/23 07:14 Pulse 72 07/14/23 07:14 Resp 16 07/14/23 07:14 BP 167/84 07/14/23 07:14 Pulse Ox 96 07/14/23 07:14 FiO2 Intake & Output 07/13/23 07/14/23 07/14/23 18:59 06:59 18:59 Intake Total 900 Balance 900 Weight 58.967 kg 49 kg Intake: Intake, IV Titration 900 Amount Sodium Chloride 0.9% 1, 900 000 ml @ 75 mls/hr IV . [id number] [facility] Rx#:[id number] Other: # Voids 3 - Exam GENERAL EXAM: Alert, pleasant 42-year-old female, resting in bed, on room air, comfortable in no apparent distress. HEAD: Normocephalic. EYES: Normal reaction of pupils, equal size. NOSE: Clear with pink turbinates. THROAT: No erythema or exudates. NECK: No masses, no JVD. CHEST: No chest wall deformity. LUNGS: Equal air entry with crackles in the right lung base. CVS: S1 and S2 normal with no audible murmur, regular rhythm. ABDOMEN: No hepatosplenomegaly, normal bowel sounds, no guarding or rigidity. SPINE: No scoliosis or deformity SKIN: No rashes CENTRAL NERVOUS SYSTEM: No focal deficits, tone is normal in all 4 extremities. EXTREMITIES: There is 1-2+ left peripheral edema. No clubbing, no cyanosis. Peripheral pulses are intact. - Labs CBC & Chem 7: 07/13/23 07:24 07/12/23 00:25 Assessment and Plan Assessment: Acute on chronic depression with suicidal ideation Left lower extremity pain found to have significant DVT. Doppler of the left lower extremity revealed a left common femoral vein partially compressible with enterococcal. However, the proximal profunda femoral and the femoral veins are noncompressible. There is minimal flow in the proximal profunda and proximal superficial femoral veins with the mid and distal femoral veins occluded. Proximal calf veins are occluded. Findings are consistent with extensive DVT of the left lower extremity. Dyspnea in a patient found to have right lung pulmonary emboli. CT angiogram revealed a partially occlusive pulmonary embolism noted in the distal right pulmonary artery with extension to the proximal right upper lobe segmental branch, proximal subsegmental branches serving the right middle lobe and the right lower lobe. No evidence of right heart strain. There is subsegmental wedge-shaped opacities in the peripheral aspect of the right lower lobe and the left anterior basal segment. Trace right pleural effusion. Chronic and ongoing tobacco dependence History of marijuana use History of daily alcohol use History of noncompliance, no primary care provider Plan: The patient was seen and evaluated Labs and medications reviewed Instructed to stay on Eliquis for 6 months Cleared for discharge from the pulmonary standpoint Follow-up in our office in 1 week Educated regarding the importance of outpatient follow-up and medication compliance I have personally seen and examined the patient, performed the documentation and the assessment and plan as written. Number of minutes spent on the visit: 10.
--- NOTE | 2023-07-14 12:11 | P.DS ---
Providers Date of admission: 07/12/23 00:43 Expected date of discharge: 07/14/23 Attending physician: Preeti Bhandari Consults: 07/12/23 00:43 Consult Physician Routine Consulting Provider: Shai Lira Consult Reason/Comments: Suicidal ideation Do you want consulting provider notified?: Yes 07/12/23 10:04 Consult Physician Urgent Consulting Provider: Benjie Zarco Consult Reason/Comments: Extensive right-sided PE Do you want consulting provider notified?: Yes Primary care physician: Stated None Hospital Course: Discharge diagnoses; Acute left lower extremity DVT Acute right-sided PE Suicidal ideations Worsening depression Hospital course; patient is 42-year-old lady with past medical history significant for depression, mood disorders presented to the ER because of feeling depressed and having suicidal thoughts. Patient stated that she has been taking her medications but they have not been working and she has been feeling more depressed. Patient has been having thoughts of hurting herself. There is no complain of auditory or visual hallucinations. Patient also complaining of left leg pain and swelling which has been going on for the last few months, swelling has increased all the way to the upper thigh now. Denies any chest pain. Denies any shortness of breath. No complaint of fever or chills. Initial lab work done in the ER showed WBC 7, hemoglobin 12.2, platelet count 236, sodium 142, potassium 4, BUN 8, creatinine 0.69, AST 29, ALT 20 Ultrasound of lower extremities done showed extensive deep vein thrombosis of left lower extremity CTA chest showed partially occlusive pulmonary embolism noted in the distal right pulmonary artery with extension into the proximal right upper lobe segmental branch, proximal subsegmental branches serving the right middle lobe and right lower lobe,.subsegmental wedge-shaped opacities in the peripheral aspect of the right lower lobe and the left anterior basal segment. Patient admitted to medicine service 07/13. Patient seen and examined. No acute issues overnight. 07/14. Patient seen and examined. Psychiatric recommended the following At this time, we are awaiting the patient's acute issues of DVT and PE to be resolved prior to the initiation of medications. Antidepressants have been shown in studies to increase VTE in women. However SSRIs due to increase the risk of bleeding due to serotonergic nature. Agree with Klonopin PRN at this time. Recommend outpatient follow-up Patient being discharged on Eliquis 10 mg twice a day for 7 days followed by Eliquis 5 mg twice a day. PHYSICAL EXAMINATION: GENERAL: The patient is alert and oriented x3, not in any acute distress. Well developed, well nourished. HEENT: Pupils are round and equally reacting to light. EOMI. No scleral icterus. No conjunctival pallor. Normocephalic, atraumatic. No pharyngeal erythema. No thyromegaly. CARDIOVASCULAR: S1 and S2 present. No murmurs, rubs, or gallops. PULMONARY: Chest is clear to auscultation, no wheezing or crackles. ABDOMEN: Soft, nontender, nondistended, normoactive bowel sounds. No palpable organomegaly. MUSCULOSKELETAL: No joint swelling or deformity. EXTREMITIES: No cyanosis, clubbing, or pedal edema. NEUROLOGICAL: Gross neurological examination did not reveal any focal deficits. SKIN: No rashes. Dictation was produced using [employer] dictation software. please excuse any grammatical, word or spelling errors. Patient Condition at Discharge: Fair Plan - Discharge Summary Discharge Rx Participant: No New Discharge Prescriptions: New Apixaban [Eliquis Starter Pack (for VTE)] 5 - 10 mg PO DIRECTED 30 Days #1 each Mirtazapine [Remeron] 7.5 mg PO HS #30 tab Continue Montelukast [Singulair] 10 mg PO DAILY PRN PRN Reason: Allergy Symptoms clonazePAM [KlonoPIN] 1 mg PO TID PRN PRN Reason: Anxiety Discontinued QUEtiapine FUMARATE [SEROquel] 600 mg PO HS Discharge Medication List Montelukast [Singulair] 10 mg PO DAILY PRN 01/28/20 [History] clonazePAM [KlonoPIN] 1 mg PO TID PRN 07/12/23 [History] Apixaban [Eliquis Starter Pack (for VTE)] 5 - 10 mg PO DIRECTED 30 Days #1 each 07/14/23 [Rx] Mirtazapine [Remeron] 7.5 mg PO HS #30 tab 07/14/23 [Rx] Follow up Appointment(s)/Referral(s): None,Stated [Primary Care Provider] - 1-2 days Benjie Zarco DO [Doctor of Osteopathic Medicine] - 1 Week Discharge/Stand Alone Forms: Outpatient Counseling Discharge Disposition: HOME SELF-CARE
[2023-07-14 13:17] LABS: ALT 16 U/L (8-44); AST 17 U/L (13-35); Albumin 3.3 d/dL (3.8-4.9); Albumin/Globulin Ratio 1.27 Ratio (1.60-3.17); Alkaline Phosphatase 107 U/L (41-126); BUN/Creat Ratio <7.00 Ratio (12.00-20.00); Blood Urea Nitrogen <3.5 mg/dL (9.0-27.0); Calcium 8.7 mg/dL (8.7-10.3); Chloride 100 mmol/L (96-109); Globulin 2.6 d/dL (1.6-3.3); Glucose 85 mg/dL (70-110); Potassium 4.2 mmol/L (3.5-5.5); Sodium 138 mmol/L (135-145); Total Bilirubin 0.4 mg/dL (0.3-1.2); Total Protein 5.9 d/dL (6.2-8.2)
[2023-07-14 13:47] VITALS: BP 157/84; PULSE 77; TEMP 98.2
== END 2023-07-14 16:07 | disposition home or self-care (01) | DRG 299 ==
LOC: EC 21:34 → 3SCARD 07-12 00:43 → 4SSUR 07-13 14:09
PROVIDERS: ADMIT Hospitalist; ATTEND Hospitalist
DX: I82.412 Acute embolism and thrombosis of left femoral vein (principal); I26.99 Other pulmonary embolism without acute cor pulmonale; J98.11 Atelectasis; R45.851 Suicidal ideations; F33.1 Major depressive disorder, recurrent, moderate; I82.4Z2 Acute embolism and thrombosis of unspecified deep veins of left distal lower extremity; F10.10 Alcohol abuse, uncomplicated; F17.210 Nicotine dependence, cigarettes, uncomplicated; G93.32 Myalgic encephalomyelitis/chronic fatigue syndrome; F41.0 Panic disorder [episodic paroxysmal anxiety]; M48.00 Spinal stenosis, site unspecified; M19.90 Unspecified osteoarthritis, unspecified site; F90.9 Attention-deficit hyperactivity disorder, unspecified type; G89.4 Chronic pain syndrome; M79.7 Fibromyalgia; Z20.822 Contact with and (suspected) exposure to COVID-19; Z28.310 Unvaccinated for COVID-19; Z28.21 Immunization not carried out because of patient refusal; Z79.1 Long term (current) use of non-steroidal anti-inflammatories (NSAID); Z79.899 Other long term (current) drug therapy; Z80.3 Family history of malignant neoplasm of breast; Z81.8 Family history of other mental and behavioral disorders; Z82.49 Family history of ischemic heart disease and other diseases of the circulatory system; Z91.199 Patient's noncompliance with other medical treatment and regimen due to unspecified reason; Z88.6 Allergy status to analgesic agent; Z88.0 Allergy status to penicillin; Z88.8 Allergy status to other drugs, medicaments and biological substances
CPT/HCPCS: 36415; 71275; 80053; 82075; 85025; 85610; 85730; 87635; 93005